=== PATIENT | male | born 1955 | race American Indian/Alaskan Native ===

== ENCOUNTER 2021-02-25 12:27 | Emergency (ER) | payer MEDICARE ==
--- NOTE | 2021-02-25 14:04 | Emergency Department Report ---
ED General Adult HPI - General Chief complaint: Extremity Problem,Nontraumatic Stated complaint: LEG PAIN Time Seen by Provider: 02/25/21 13:11 Source: patient Mode of arrival: Ambulatory Limitations: No Limitations - History of Present Illness Initial comments: Patient presents to the emergency department with a chief complaint of left leg pain as well as mild right leg pain. Patient states he has a history of peripheral vascular disease and states that for the last couple days with walking he has had increased pain of his left lower leg. Patient states he has a history of stents to that leg which were placed around the [facility] last year. He is currently on Plavix as well as Eliquis. He denies any chest pain or shortness of breath. He also denies headache or abdominal pain. -: Gradual Location: lower extremity Radiation: non-radiation Severity scale (0 -10): 6 Consistency: constant Improves with: rest Worsens with: movement Associated Symptoms: denies other symptoms Treatments Prior to Arrival: none - Related Data Previous Rx's Medication Instructions Recorded Last Taken Type Acetaminophen/Codeine [Tylenol 1 tab PO Q6H PRN #15 tab 02/25/21 Unknown Rx /Codeine # 3 tab] Ondansetron [Zofran Odt] 4 mg PO Q4HR PRN #20 tab.rapdis 02/25/21 Unknown Rx Allergies Allergy/AdvReac Type Severity Reaction Status Date / Time No Known Allergies Allergy Unverified 02/25/21 12:39 ED Review of Systems ROS: Stated complaint: LEG PAIN Other details as noted in HPI Constitutional: denies: chills, fever Eyes: denies: eye pain, eye discharge, vision change ENT: denies: ear pain, throat pain Respiratory: denies: cough, shortness of breath, wheezing Cardiovascular: denies: chest pain, palpitations Endocrine: no symptoms reported Gastrointestinal: denies: abdominal pain, nausea, diarrhea Genitourinary: denies: urgency, dysuria Musculoskeletal: denies: back pain, joint swelling, arthralgia Skin: denies: rash, lesions Neurological: denies: headache, weakness, paresthesias Psychiatric: denies: anxiety, depression Hematological/Lymphatic: denies: easy bleeding, easy bruising ED Past Medical Hx - Past Medical History Previous Medical History?: Yes Hx Deep Vein Thrombosis: Yes (2019, stenst placed in both legs 2019) - Surgical History Past Surgical History?: Yes Additional Surgical History: stent placement 2019 - Social History Smoking Status: Current Some Day Smoker - Medications Home Medications: Home Medications Medication Instructions Recorded Confirmed Last Taken Type Acetaminophen/Codeine [Tylenol 1 tab PO Q6H PRN #15 tab 02/25/21 Unknown Rx /Codeine # 3 tab] Ondansetron [Zofran Odt] 4 mg PO Q4HR PRN #20 tab.rapdis 02/25/21 Unknown Rx ED Physical Exam - General Limitations: No Limitations General appearance: alert, in no apparent distress - Head Head exam: Present: atraumatic, normocephalic - Eye Eye exam: Present: normal appearance - ENT ENT exam: Present: mucous membranes moist - Neck Neck exam: Present: normal inspection - Respiratory Respiratory exam: Present: normal lung sounds bilaterally. Absent: respiratory distress - Cardiovascular Cardiovascular Exam: Present: regular rate, normal rhythm, other (There is no dorsalis pedis pulse of the left foot that is faint in nature. The foot is warm to touch. There is also good pulses of the right lower extremity at the dorsalis pedis and posterior tibialis). Absent: systolic murmur, diastolic murmur, rubs, gallop - GI/Abdominal GI/Abdominal exam: Present: soft, normal bowel sounds - Rectal Rectal exam: Present: deferred - Extremities Exam Extremities exam: Present: normal inspection - Back Exam Back exam: Present: normal inspection - Neurological Exam Neurological exam: Present: alert, oriented X3 - Psychiatric Psychiatric exam: Present: normal affect, normal mood - Skin Skin exam: Present: warm, dry, intact, normal color. Absent: rash ED Course Vital Signs 02/25/21 02/25/21 02/25/21 12:38 12:42 12:45 Temperature 98.9 F Pulse Rate 89 88 Respiratory 14 18 Rate Blood Pressure Blood Pressure 136/86 126/93 [Right] O2 Sat by Pulse 97 94 95 Oximetry 02/25/21 02/25/21 02/25/21 12:46 13:00 13:16 Temperature 99.2 F Pulse Rate 79 80 Respiratory 14 21 Rate Blood Pressure 126/93 126/93 125/92 Blood Pressure [Right] O2 Sat by Pulse 99 98 98 Oximetry 02/25/21 02/25/21 02/25/21 13:30 13:46 14:00 Temperature Pulse Rate 95 H 71 65 Respiratory 14 11 L 14 Rate Blood Pressure 133/79 138/78 146/77 Blood Pressure [Right] O2 Sat by Pulse 97 99 99 Oximetry 02/25/21 02/25/21 02/25/21 14:16 14:30 14:46 Temperature Pulse Rate 81 79 69 Respiratory 11 L 19 16 Rate Blood Pressure 154/87 151/81 151/83 Blood Pressure [Right] O2 Sat by Pulse 97 100 100 Oximetry 02/25/21 02/25/21 02/25/21 15:00 15:16 15:30 Temperature Pulse Rate 74 67 67 Respiratory 19 18 15 Rate Blood Pressure 145/73 150/81 134/77 Blood Pressure [Right] O2 Sat by Pulse 100 99 98 Oximetry 02/25/21 02/25/21 02/25/21 15:46 16:09 16:16 Temperature Pulse Rate 65 Respiratory 32 H Rate Blood Pressure 134/80 134/80 134/80 Blood Pressure [Right] O2 Sat by Pulse 98 100 100 Oximetry 02/25/21 16:30 Temperature Pulse Rate Respiratory Rate Blood Pressure 148/88 Blood Pressure [Right] O2 Sat by Pulse 100 Oximetry ED Medical Decision Making - Lab Data Result diagrams: 02/25/21 14:16 02/25/21 14:16 Lab Results 02/25/21 02/25/21 02/25/21 Range/Units 14:16 14:16 14:16 WBC 9.3 (4.5-11.0) K/mm3 RBC 4.87 (3.65-5.03) M/mm3 Hgb 14.0 (11.8-15.2) gm/dl Hct 44.0 (35.5-45.6) % MCV 90 (84-94) fl MCH 29 (28-32) pg MCHC 32 (32-34) % RDW 14.8 (13.2-15.2) % Plt Count 245 (140-440) K/mm3 Lymph % (Auto) 18.9 (13.4-35.0) % [place] % (Auto) 14.3 H (0.0-7.3) % Eos % (Auto) 1.4 (0.0-4.3) % Baso % (Auto) 0.5 (0.0-1.8) % Lymph # (Auto) 1.8 (1.2-5.4) K/mm3 [place] # (Auto) 1.3 H (0.0-0.8) K/mm3 Eos # (Auto) 0.1 (0.0-0.4) K/mm3 Baso # (Auto) 0.0 (0.0-0.1) K/mm3 Seg Neutrophils % 64.9 (40.0-70.0) % Seg Neutrophils # 6.0 (1.8-7.7) K/mm3 PT 14.0 (12.2-14.9) Sec. INR 0.97 (0.87-1.13) APTT 28.2 (24.2-36.6) Sec. Sodium 139 (137-145) mmol/L Potassium 4.2 (3.6-5.0) mmol/L Chloride 105.3 (98-107) mmol/L Carbon Dioxide 22 (22-30) mmol/L Anion Gap 16 mmol/L BUN 12 (9-20) mg/dL Creatinine 1.0 (0.8-1.3) mg/dL Estimated GFR > 60 ml/min BUN/Creatinine Ratio 12 % Glucose 90 (75-100) mg/dL Calcium 9.1 (8.4-10.2) mg/dL Total Bilirubin 0.60 (0.1-1.2) mg/dL AST 27 (5-40) units/L ALT 29 (7-56) units/L Alkaline Phosphatase 78 (35-129) units/L Total Protein 7.5 (6.3-8.2) g/dL Albumin 3.9 (3.9-5) g/dL Albumin/Globulin Ratio 1.1 % - Radiology Data Radiology results: report reviewed - Medical Decision Making Discussed results with patient Critical care attestation.: If time is entered above; I have spent that time in minutes in the direct care of this critically ill patient, excluding procedure time. ED Disposition Clinical Impression: Claudication Disposition: 01 HOME / SELF CARE / HOMELESS Is pt being admited?: No Does the pt Need Aspirin: No Condition: Stable Instructions: Preventing Peripheral Vascular Disease Additional Instructions: return if worse Referrals: JITENDRA HOUSTON MD [Primary Care Provider] - 3-5 Days AISHA ROTHMAN MD [Staff Physician] - 3-5 Days Time of Disposition: 17:24
[2021-02-25 14:41] LABS: Basophils % (Auto) 0.5 % (0.0-1.8); Eosinophils # (Auto) 0.1 K/mm3 (0.0-0.4); Eosinophils % (Auto) 1.4 % (0.0-4.3); Lymphocytes # (Auto) 1.8 K/mm3 (1.2-5.4); Lymphocytes % (Auto) 18.9 % (13.4-35.0); Mean Corpuscular HGB Conc 32 % (32-34); Mean Corpuscular Volume 90 fl (84-94); Monocytes # (Auto) 1.3 K/mm3 (0.0-0.8); Monocytes % (Auto) 14.3 % (0.0-7.3); Platelet Count 245 K/mm3 (140-440); Red Blood Count 4.87 M/mm3 (3.65-5.03); Red Cell Distribution Width 14.8 % (13.2-15.2)
[2021-02-25 14:48] LABS: INR 0.97 (0.87-1.13); Partial Thromboplastin Time 28.2 Sec. (24.2-36.6)
[2021-02-25 14:58] LABS: Alanine Aminotransferase 29 units/L (7-56); Albumin 3.9 g/dL (3.9-5); BUN/Creatinine Ratio 12; Blood Urea Nitrogen 12 mg/dL (9-20); Calcium 9.1 mg/dL (8.4-10.2); Hemolysis Index 20
--- NOTE | 2021-02-25 17:07 | Cat Scan Report ---
CTA ABDOMEN, PELVIS, AND LOWER EXTREMITIES WITH CONTRAST INDICATION / CLINICAL INFORMATION: Claudication with a history of arterial clot. TECHNIQUE: Axial CT images were obtained through the abdomen, pelvis and lower extremities after inje ction of 100 cc of Omnipaque 350 IV contrast. 3 plane MIP / 3D reconstructions were produced. All CT scans at this location are performed using CT dose reduction for ALARA by means of automated exposure control. COMPARISON: None available. FINDINGS: CTA ABDOMEN: Abdominal Aorta: Mild calcific atherosclerosis. Celiac Artery: No significant abnormality. Superior Mesenteric Artery: No significant abnormality. Right Renal Artery: No significant abnormality. Left Renal Artery: No significant abnormality. Inferior Mesenteric Artery: No significant abnormality. CTA PELVIS: RIGHT: - Common Iliac Artery: Mild calcific atherosclerosis - Internal Iliac Artery: Moderate calcific atherosclerosis - External Iliac Artery: No significant abnormality. LEFT: - Common Iliac Artery: Mild calcific atherosclerosis - Internal Iliac Artery: Mild calcific atherosclerosis - External Iliac Artery: No significant abnormality. CTA LOWER EXTREMITIES: RIGHT LOWER EXTREMITY: - Common Femoral Artery: Mild calcific atherosclerosis - Superficial Femoral Artery: Mild calcific atherosclerosis - Profunda Femoral Artery: No significant abnormality. - Popliteal Artery: No significant abnormality. - Anterior Tibial Artery: No significant abnormality. - Tibioperoneal Trunk: No significant abnormality. - Posterior Tibial Artery: No significant abnormality. - Peroneal Artery: No significant abnormality. - Ankle runoff: Three vessel. LEFT LOWER EXTREMITY: - Common Femoral Artery: No significant abnormality. - Superficial Femoral Artery: Indwelling vascular stent with moderate narrowing of the intraluminal c ontrast. - Profunda Femoral Artery: No significant abnormality. - Popliteal Artery: No significant abnormality. - Anterior Tibial Artery: No significant abnormality. - Tibioperoneal Trunk: No significant abnormality. - Posterior Tibial Artery: No significant abnormality. - Peroneal Artery: No significant abnormality. - Ankle runoff: Three vessel. NONTARGET STRUCTURES: ABDOMEN:There are several renal cysts involving the left kidney. PELVIS:No significant abnormality. LOWER EXTREMITIES:No significant abnormality. SKELETAL: Scattered degeneration. ADDITIONAL FINDINGS: None. IMPRESSION: 1. Patient is status post left superficial femoral artery endovascular stent placement with moderate narrowing of the endoluminal contrast, otherwise no significant atherosclerotic disease throughout th e abdomen and pelvis and bilateral extremity Signer Name: Ruddy Marsh DO Signed: 02/25/2021 5:02 PM Workstation Name: [id number]
[2021-02-25 17:51] VITALS: BP 150/98
== END 2021-02-25 17:50 | disposition home or self-care (01) ==
LOC: ED 12:27
DX: I73.9 Peripheral vascular disease, unspecified (principal); Z86.718 Personal history of other venous thrombosis and embolism; F17.200 Nicotine dependence, unspecified, uncomplicated
CPT/HCPCS: 36415; 75635; 80053; 85025; 85610; 85730; 99284; Q9967